=== PATIENT | male | born 1960 | race Caucasian/White ===

== ENCOUNTER 2020-04-06 06:25 | Observation (INO) ==
--- NOTE | 2020-03-25 10:16 | Anesthesiology Consultation ---
Date of Service March 25, 2020 Assessment & Plan (1) Encounter for pre-operative examination: Preop PCP Clearance 03/09/20 = "Patient medically cleared for surgery." Chart Review Chart Review: Acceptable Risk for Surgery and Patient NOT seen in Pre Admission Testing History Surgery Operation Date: 04/06/20 07:00 Proposed Procedures p Right Total Hip Arthroplasty - Romero Brown MD Height/Weight Height: 6 ft Weight: 88.451 kg Allergies Allergy/AdvReac Type Severity Reaction Status Date / Time No Known Allergies Allergy Verified 03/03/20 10:03 Medications Home Medications Medication Instructions Recorded Confirmed Last Taken ascorbic acid (vitamin C) [Vitamin 1 g PO QAM 03/03/20 03/03/20 Unknown C] cyanocobalamin (vitamin B-12) 500 mcg PO QAM 03/03/20 03/03/20 Unknown glucosam zimmer [id number] 2 cap PO QAM 03/03/20 03/03/20 Unknown [glucosamine-chondroitin] multivitamin 1 tab PO QAM 03/03/20 03/03/20 Unknown Past Medical History Medical History 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 Extent and severity varies. 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
--- NOTE | 2020-04-01 16:25 | History & Physical Report ---
Date of Service April 01, 2020 Assessment & Plan (1) Degenerative joint disease of right hip: The patient is scheduled for a right total hip arthroplasty by Dr. Brown on April 06, 2020. Risks and complications of the surgery were explained to the patient and include, but are not limited to, infection, pain, bleeding, scarring, nerve and blood vessel damage, wound problems, weakness, stiffness, incomplete relief of symptoms, hardware failure, loosening wear, fracture, dislocation, leg length discrepancy, blood clots, embolisms, heart attack, stroke, and . Also, the risk of Coronavirus due to being an inpatient. He understands and agrees. Informed consent will be obtained by Dr. Brown on the day of surgery. He did have preoperative clearance by his family physician, Dr. Rosemarie Serrano. He has been cleared. He had an EKG at that time, which showed normal sinus rhythm. He also had a CBC, BMP, which were both normal as well. He will obtain a preoperative PT/PTT type and screen and urinalysis later today at [facility]. He also had a chest x-ray today in our office, which showed no active disease in the chest. He was given a temporary handicap parking placard to obtain for after surgical use. He does have a walker after surgery. He would like to go home upon discharge with in-home nursing and physical therapy if necessary. We will use Coumadin for DVT prophylaxis, and he was instructed on the use of this. He was also instructed on the usage of CHG cloths prior to surgery, and does have those at home. We will also obtain preoperative COVID-19 testing as instructed by [facility] closer to his surgery date. He will then need to be quarantine after the testing until his surgical time. He will be on Percocet for postoperative pain control, and he was cautioned on the risks of the Percocet, which include const ipation. He does have stool softeners and laxatives at home if he needs that as this has happened to him before. All questions were answered today. He knows to call with any further worsening problems, questions, or concerns. Present on Admission?: Yes Admission and Anticipated Discharge Date Admission Date: April 06, 2020 History of Present Illness Chief Complaint: Right hip pain. The patient is a pleasant 59-year-old male who is here today for preoperative history and physical. He is scheduled to have a right total hip arthroplasty with Dr. Brown on April 06, 2020. He states he has been having ongoing right hip pain for the last few years, it has progressively worsened over the last 6 months or so. He does have history of having a right knee arthroscopy and meniscectomy. He thought lot of this pain was coming from his knee, but does have groin pain. He says he has very limited range of motion. His hip does not move very much. He does not notice it when walking on even ground, but notices it when he has to go up an incline or up and down steps. He does have pain in the groin and the right buttock area occasionally. He does radiate down into his thigh. His pain is increased with activity and weightbearing. It does interfere with his activities of daily living, and he has trouble bending over to get his leg into a pant leg as well as tying his shoes. He has pain with passive range of motion and limited range of motion due to the pain and arthritis in his right hip. He does ambulate with an antalgic gait. He does not use a cane or a walker to assist with any ambulation, but he does have both at home. Aggravating activities include going up and down steps. He has not had any previous corticosteroid injections. He has tried [id number] anti-inflammatories as well as Tylenol Arthritis. He has failed conservative treatment due to his increasing pain, stiffness, inability to move, and decreasing activities of daily living. Surgical intervention was recommended. He does agree to proceed with surgery and is scheduled for a right total hip arthroplasty on April 06, [address] Brown. 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 Extent and severity varies. 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 Denies any recent hospitalizations. Denies any headaches, migraine seizures, syncopal episodes, lightheadedness, or dizziness. Denies any bleeding or clotting disorders, history of DVT, or pulmonary embolism. He does have history of having kidney stones approximately 19 years ago. Nothing since. He denies any metal sensitivity or allergy. Denies any latex allergy or history of MRSA. He has not been tested for the [place] virus, but we will obtain this prior to surgery as recommended by [facility]. He denies any chest pain or shortness of breath. Denies any heart palpitations. Denies any abdominal pain. He does get occasional heartburn with certain foods that he eats, but it goes away after a short period of time. Denies any reflux or indigestion. Denies any nausea, vomiting, diarrhea, or constipation. Denies any urinary symptoms such as retention, burning, unable to void, dribbling, or foul-smelling urine. Denies any prostate problems. Denies any heat or cold intolerance. He states that he is hard of hearing, and occasionally wears hearing aids. Denies any vision problems. Denies any current dental problems. Physical Exam Physical Exam: General: He is alert and oriented x3. He is in no acute distress. He is a well-dressed, well-nourished male. Normal mood and affect. Vital Signs: Height is 181 cm, weight is 93 kg, BMI is 28.39. Today, temperature is 36.5, blood pressure is 140/82, heart rate is 68, oxygenation is 100% on room air. Pain score is 2/10. HEENT: Head: Atraumatic, normocephalic. Eyes: Extraocular movements intact. Pupils equal, round, and reactive to light. He does have some ptosis of his left eyelid. His pupils are equal, round, and reactive to light. His sclerae are normal. Nose: Nares are patent bilaterally. Throat: Oropharynx is clear. Mucous membranes moist. Good dentition. Uvula midline. Neck: Supple. No lymphadenopathy. Nontender to palpation. Full range of motion. His chest is nontender to palpation. He does have abnormal musculature on the left side and some excavatum of his chest. His lungs are clear to auscultation bilaterally. Heart is regular rate and rhythm. Normal S1, S2. No murmurs, rubs, or gallops appreciated. Chest is clear to auscultation bilaterally. No adventitious sounds. No accessory muscle use. Abdomen is soft, nontender, nondistended. Normal bowel sounds heard in all 4 quadrants. Exam of his right hip reveals skin is healthy and intact, normal turgor. No distal edema. Distal neurovascular function is normal. Full range of motion of his right knee. He has very limited range of motion of his right hip. He is able to sit into a chair, but is not able to flex his hip past about 90-100 degrees. He has maybe 5 degrees of internal and external rotation with his leg in extension. He is able to lift his leg off the table. His strength is 5/5. Results & Data Results & Data ([facility]) Diagnostic Findings RADIOLOGY IMAGES: AP pelvis and 3 views of his right hip show severe osteoarthritis of his right hip with significant joint space narrowing with [id number]. He has periarticular osteophytes as well as subchondral cysts and sclerosis. Chest x-ray today shows no active disease in the chest. This was done for preoperative testing.
[~2020-04-06 06:25] MED LIST: CEFAZOLIN 2000MG 2,000 MG/15 ML SYR IV SCH; LR 15ML/HR IV SCH; LR 60ML/HR IV SCH; ROPIVACAINE 0.5% HCL/PF 150 MG, BUPIVACAINE 0.5% MPF 30 ML, EPINEPHrine 0.15 MG, Ketoro... INFIL SCH; TRANEXAMIC ACID 1,000 MG **IV Pre-op IV SCH
[2020-04-06] MEDS ORDERED: BUPIVACAINE 0.5 % 5 MG/1 ML PF 10ML VIAL ONE (06:33)
--- NOTE | 2020-04-06 06:57 | History & Physical Bridge Note ---
Date of Service April 06, 2020 History & Physical Bridge Note I have examined the patient, reviewed the History & Physical and in the interval since the performance of the History & Physical I have noted the following changes of clinical significance: consent obtained/site marked covid screen/test negative.no changes noted
[2020-04-06] MEDS ORDERED: ONDANSETRON INJ 2 MG/ML 2 ML VIAL ONE (07:22)
[2020-04-06] MEDS ORDERED: MIDAZOLAM HCL 1 MG/ML 2ML VIAL ONE (07:22)
[2020-04-06] MEDS ORDERED: LIDOCAINE HCL 2% 2 ML VIAL/AMP(20MG/ML) INFIL ONE (07:22)
[2020-04-06] MEDS ORDERED: GLYCOPYRROLATE 0.2 MG/ML VIAL ONE (07:22)
[2020-04-06] MEDS ORDERED: PROPOFOL IV EMULSION 10 MG/ML 20 ML VIAL IV ONE ×4 (07:22→08:56)
[2020-04-06] MEDS ORDERED: ONDANSETRON INJ 2 MG/ML 2 ML VIAL IV PRN ×2 (07:28→11:19)
[2020-04-06] MEDS ORDERED: fentaNYL citrate 100 MCG/2 ML VIAL IV PRN (07:28)
[2020-04-06] MEDS ORDERED: ATROPINE SULFATE 0.1 MG/ML 10ML SYR IV PRN (07:28)
[2020-04-06] MEDS ORDERED: ePHEDrine sulfate 50 MG/ML AMP IV PRN (07:28)
[2020-04-06] MEDS ORDERED: ORTHO JOINT ANESTHETIC ONE (08:00)
--- NOTE | 2020-04-06 09:58 | Post Operative Brief Note ---
Immediate Post Op Note v1 Date of Surgery April 06, 2020 Pre & Post Diagnosis Operation Date: 04/06/20 08:20 Pre-Op Diagnosis: Right Hip Degenerative Joint Disease Post-Op Diagnosis: Right Hip Degenerative Joint Disease I identified the patient and participated in the time-out.: Yes Procedure Operation Date: 04/06/20 08:20 Actual Procedures p Right Total Hip Arthroplasty(Right) - Romero Brown MD Surgeon Romero Brown MD [facility] Estimated Blood Loss 200 Findings Consistent with Post-Op Diagnosis
--- NOTE | 2020-04-06 10:08 | Operative Report ---
Post Operative Report Pre & Post Diagnosis Operation Date: 04/06/20 08:20 Pre-Op Diagnosis: Right Hip Degenerative Joint Disease Post-Op Diagnosis: Right Hip Degenerative Joint Disease I identified the patient and participated in the time-out.: Yes Procedure Operation Date: 04/06/20 08:20 Actual Procedures p Right Total Hip Arthroplasty(Right) - Romero Brown MD Surgeon FREDI Brown MD [facility] Estimated Blood Loss 200 Findings Consistent with Post-Op Diagnosis Specimens see operative report Drains none Complications none Disposition Accompanied Patient To Recovery: Yes Disposition: Recovery Room Indications This 59-year-old white male presented to the office with complaints of intractable right hip pain. He had tried conservative care measures without improvement. He elected to proceed with surgical intervention after being educated about potential risks and outcomes. Preoperative imaging was obtained. Description of Procedure Patient was given a spinal anesthetic and then taken to the operating room where he was given sedation. He was prepped and draped in the usual sterile fashion. Please see Dr. Brown's operative report for specifics of the procedure. I was present for the entire case from initial patient positioning through final wound closure. Assistance was provided in tissue retraction, hemostasis, trial implant placement, final implant placement, and final wound closure. Patient was taken to the recovery room in satisfactory condition. I attest to the content of the Intraoperative Record and any orders documented therein. Any exceptions are noted below.
--- NOTE | 2020-04-06 10:20 | Operative Report (OR) ---
DATE OF OPERATION: 04/06/2020 SURGEON: Roemro Brown MD. DREDGE CAPTAIN: Anderson Shea PA-C. No resident or fellow available. PREOPERATIVE DIAGNOSES: Severe osteoarthritis, secondary to hip dysplasia. POSTOPERATIVE DIAGNOSES: Severe osteoarthritis, secondary to hip dysplasia. OPERATION PERFORMED: Noncemented right total hip replacement. PERIOPERATIVE SITUATION: Medically cleared who has had intractable hip pain. At this point in time, he has significant pain, wants to proceed with surgical treatment. He has failed all conservative management. He realizes that this is the only option for him. He has done some research on his own looking for consultants regarding anterior versus posterior. He ultimately came to me and decided to work with me. He understands the risks and consequences of the posterior approach. PROCEDURE: Again, noncemented right total hip replacement. DESCRIPTION OF PROCEDURE: The patient appropriately identified, site verified, consent verified. Antibiotics confirmed as being given. Right lower extremity was prepped and draped in usual routine fashion. Markers were placed on the right leg, was about 0.5 cm short. He does have some pelvic obliquity as well. 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 The hip prepped and draped in usual routine fashion. Posterior approach to the hip made. Sharp dissection carried through skin and blunt dissection down to fascia. This was then incised under direct vision and the IT band split. Short external rotators were then identified and released. The capsule was then T'd and the hip was dislocated. The femoral head was markedly deformed. It was resected. Acetabular exposure was obtained after anterior capsular release was performed. Osteophytes resected. Loose bodies removed. Serial reaming carried up to a size 56 after it was medialized and then a size 56 cup impacted into appropriate anteversion and inclination with good rim fit. An accessory screw was placed 6.5 x 20 mm with excellent purchase we felt penetrating posteriorly just with the tip. The wound was irrigated, trial liner seated. The hip was then flexed and internally rotated. The proximal femur prepared with call box wirer, canal finder, lateralizing rasp, and serial broaching up to a size 6. Trial reduction was carried out and a +12 head gave relatively equal leg lengths and superb stability. The hip was then dislocated and irrigated with Betadine, Pulsavac, hole eliminator seated, permanent liner seated, permanent head and stem seated. The hip reduced. It was stable in all planes. Leg lengths were good. Wound was irrigated and then closed with #2 Vicryl for the capsule and piriformis and short external rotators, #2 Vicryl for the IT band, 2-0 Vicryl for subcutaneous layer and stainless steel clips for skin. Appropriate dressing applied. The patient transferred to recovery room in satisfactory condition and he tolerated the procedure well. Pathology pending on bone resection. DVT prophylaxis with Coumadin. Heterotopic ossification prophylaxis with Celebrex. I attest to the content of the Intraoperative Record and any orders documented therein. Any exception s are noted below.
--- NOTE | 2020-04-06 10:22 | XRay Report ---
PELVIS 1-2V routine History: Right total hip arthroplasty. Degenerative arthritis. Postop. FINDINGS: The patient is status post a right total hip arthroplasty. The hardware is intact. No fracture or dislocation. Skin jeffrey are in place. IMPRESSION: Right total hip arthroplasty. No evidence for hardware complication ACT 112: Negative or not required by law. Electronically signed by: Kei Castillo M.D. 04/06/2020 10:21 AM ROSALEE
--- NOTE | 2020-04-06 10:24 | Operative Report (OR) ---
DATE OF OPERATION: 04/06/2020 ADDENDUM SUMMARY OF IMPLANTS: Size 56 acetabular shell sector cup hole eliminator, cancellous screw 6.5 x 20, acetabular liner 36 x 56 neutral liner, size 6 standard, Tri-Lock stem and a 36+12 ceramic head. EBL was 200 mL. Bone pathology pending. DVT prophylaxis per protocol. I attest to the content of the Intraoperative Record and any orders documented therein. Any exception s are noted below.
[2020-04-06] MEDS ORDERED: NALOXONE HCL 0.4 MG/1 ML VIAL/CARP IV PRN (11:19)
[2020-04-06] MEDS ORDERED: bisacodyL 10 MG SUPP PR PRN (11:19)
[2020-04-06] MEDS ORDERED: MAGNESIUM HYDROXIDE SUSP 30 ML UDC PO PRN (11:19)
[2020-04-06] MEDS ORDERED: METOCLOPRAMIDE HCL INJ 5 MG/ML 2 ML VIAL IV PRN (11:19)
[2020-04-06] MEDS ORDERED: OXYCODONE HCL IR 5 MG TAB (IMMEDIATE RELEASE) PO PRN (11:19)
[2020-04-06] MEDS ORDERED: ALUMINUM/MAGNESIUM SUSP 30 ML UDC PO PRN (11:19)
[2020-04-06] MEDS ORDERED: TAMSULOSIN HCL 0.4 MG CAP PO PRN (11:19)
[2020-04-06] MEDS ORDERED: HYDROmorphone INJ 0.5 MG/0.5 ML SYR IV PRN (11:19)
[2020-04-06] MEDS ORDERED: SODIUM CHLORIDE 0.9% 1000ML 1,000 ML IV SCH (11:19)
[2020-04-06] MEDS ORDERED: DiphenhydrAMINE HCL 50 MG/ML VIAL IV PRN (11:19)
[2020-04-06] MEDS: KETOROLAC 30 MG/ML VIAL IV SCH ×3 (12:33→23:17)
--- NOTE | 2020-04-06 13:10 | Progress Notes ---
DATE: 04/06/2020 Postop check status post right total hip replacement. The patient is sitting up in bed eating lunch. He denies any chest pain, shortness of breath, fever, chills, nausea, vomiting or headache. Wound dressing clean, dry and intact. Neurovascular check limited by spinal still having an effect, has trace movement in both lower extremities. Postop x-rays look excellent. ASSESSMENT: Overall, doing well. Continue with care pathway. He is eating well. Hep-Lock IV. Mobilize when his legs wake up. Discharge plans for tomorrow.
--- NOTE | 2020-04-06 13:16 | Discharge Summary (DS) ---
CHIEF COMPLAINT: Right hip pain. HISTORY OF PRESENT ILLNESS: The patient is admitted for elective right total hip replacement for severe osteoarthritic disease secondary to hip dysplasia. At this point in time, hospital course has been uneventful. PAST MEDICAL HISTORY: Remarkable for Amy syndrome, history of nephritis. PAST SURGICAL HISTORY: Colonoscopy, tooth extraction. FAMILY HISTORY: Sister, diabetes. Father, colon cancer. SOCIAL HISTORY: Speaks Chinese. 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 Social alcohol. No tobacco or substance abuse. REVIEW OF SYSTEMS: Reveals no chest pain, shortness of breath, fever, chills, nausea, vomiting or headache. Postop x-rays look excellent. ASSESSMENT: Status post right total hip replacement, discharge to home with home health services. Follow up in 2 weeks for staple removal. Coumadin for DVT prophylaxis, Celebrex for HO prophylaxis.
[2020-04-06] MEDS: ACETAMINOPHEN 500 MG TAB PO SCH ×2 (13:33→21:02)
[2020-04-06] MEDS ORDERED: ORTHO WARFARIN NOMOGRAM SCH (14:00)
--- NOTE | 2020-04-06 15:30 | Anesthesiology Progress Note ---
Date of Service April 06, 2020 Anesthesia Post Procedure Vital Signs Vital Signs: Temp Pulse Pulse Resp BP Pulse Ox 04/06/20 15:00 36.7 C 77 16 105/64 94 04/06/20 14:05 36.7 C 77 18 103/64 95 04/06/20 13:05 37.0 C 76 18 114/73 97 04/06/20 12:05 36.5 C 78 16 120/78 97 04/06/20 11:39 36.7 C 81 17 116/73 98 04/06/20 11:05 36.7 C 73 15 147/70 H 98 04/06/20 10:45 62 18 130/78 99 04/06/20 10:35 36.4 C L 64 15 125/69 97 04/06/20 10:25 63 16 114/88 96 04/06/20 10:15 62 15 123/77 100 04/06/20 10:05 36.5 C 73 18 110/73 100 04/06/20 07:22 37.1 C 79 20 149/97 H 98 Pain Intensity Right Hip: Pain Intensity: 0 Transfer of Care Handoff Completed per policy Notes Mental Status: alert / awake / arousable and participated in evaluation Patient Amnestic to Procedure: Yes Nausea / Vomiting: adequately controlled Pain: adequately controlled Airway Patency, RR, SpO2: stable & adequate BP & HR: stable & adequate Hydration State: stable & adequate Neuraxial Anesthesia: was administered and sensory block is resolving Anesthetic Complications: no major complications apparent and Pt Satisfied with anesthetic care
[2020-04-06] MEDS ORDERED: WARFARIN SOD 5 MG TAB PO ONE (16:00)
[2020-04-06] MEDS ORDERED: TRANEXAMIC ACID / 0.7% NACL 1,000 MG/100 ML BAG IV SCH (16:13)
[2020-04-06] MEDS: CEFAZOLIN 2000MG 2,000 MG/15 ML SYR IV SCH (18:13)
[2020-04-06] MEDS ORDERED: SENNA 8.6 MG TAB PO SCH (21:00)
[2020-04-06] MEDS: DOCUSATE SODIUM 100 MG CAP PO SCH (21:02)
[2020-04-06] MEDS: PANTOprazole 40 MG TAB PO SCH (21:18)
[2020-04-07] MEDS: CEFAZOLIN 2000MG 2,000 MG/15 ML SYR IV SCH (03:25)
[2020-04-07] MEDS: ACETAMINOPHEN 500 MG TAB PO SCH (05:23)
[2020-04-07] MEDS: KETOROLAC 30 MG/ML VIAL IV SCH (05:23)
[2020-04-07 07:24] LABS: Basophils # (auto) 0.01 K/uL (0-0.2); Basophils % (auto) 0.1 %; Eosinophils # (auto) 0.04 K/uL (0-0.5); Eosinophils % (auto) 0.4 %; Hematocrit (blood only) 33.1 % (42-52); Hemoglobin 10.9 g/dL (14.0-18.0); Immature Granulocytes # (auto) 0.02 K/uL (0.00-0.02); Immature Granulocytes % (auto) 0.2 %; Lymphocytes % (auto) 16.7 %; Mean Corpuscular Hemoglobin 30.2 pg (25-34); Mean Corpuscular Hgb Conc 32.9 g/dL (32-36); Mean Corpuscular Volume 91.7 fL (80-100); Mean Platelet Volume 9.3 fL (7.4-10.4); Monocytes # (auto) 0.98 K/uL (0.11-0.59); Monocytes % (auto) 10.9 %; Neutrophils # (auto) 6.42 K/uL (1.4-6.5); Neutrophils % (auto) 71.7 %; Platelet Count 197 K/uL (130-400); RDW Coefficient of Variation 14.1 % (11.5-14.5); RDW Standard Deviation 47.4 fL (36.4-46.3); Red Blood Count 3.61 M/uL (4.7-6.1); White Blood Count 8.97 K/uL (4.8-10.8)
[2020-04-07 07:34] LABS: INR 1.1 (0.9-1.1); Prothrombin Time 11.1 Seconds (9.0-12.0)
--- NOTE | 2020-04-07 07:35 | Anesthesiology Progress Note ---
Date of Service April 07, 2020 Anesthesia Post Procedure Vital Signs Vital Signs: Temp Pulse Pulse Resp BP Pulse Ox 04/07/20 07:31 36.7 C 73 18 122/78 98 04/07/20 03:18 36.7 C 82 16 107/69 97 04/06/20 22:25 36.7 C 66 16 99/64 L 95 04/06/20 19:21 36.8 C 77 16 91/55 L 95 04/06/20 15:00 36.7 C 77 16 105/64 94 04/06/20 14:05 36.7 C 77 18 103/64 95 04/06/20 13:05 37.0 C 76 18 114/73 97 04/06/20 12:05 36.5 C 78 16 120/78 97 04/06/20 11:39 36.7 C 81 17 116/73 98 04/06/20 11:05 36.7 C 73 15 147/70 H 98 04/06/20 10:45 62 18 130/78 99 04/06/20 10:35 36.4 C L 64 15 125/69 97 04/06/20 10:25 63 16 114/88 96 04/06/20 10:15 62 15 123/77 100 04/06/20 10:05 36.5 C 73 18 110/73 100 Pain Intensity Right Hip: Pain Intensity: 0 Transfer of Care Handoff Completed per policy Notes Mental Status: alert / awake / arousable and participated in evaluation Nausea / Vomiting: adequately controlled Pain: adequately controlled Airway Patency, RR, SpO2: stable & adequate BP & HR: stable & adequate Hydration State: stable & adequate Neuraxial Anesthesia: was administered and sensory block resolved Anesthetic Complications: no major complications apparent and Pt Satisfied with anesthetic care
[2020-04-07 07:56] LABS: BUN Creatinine Ratio 13.6 (10-20); Calcium 8.5 mg/dl (8.5-10.1); Creatinine Clr Calc Pharmacy 77.7 ml/min; Est GFR (African American) 83.2; Est GFR (Non-African American) 71.8; Potassium 3.9 mmol/L (3.5-5.1)
[2020-04-07] MEDS ORDERED: dexAMETHasone 10 MG in SYRINGE 0 ML IV SCH (08:00)
--- NOTE | 2020-04-07 08:30 | Orthopedic Progress Note ---
Date of Service April 07, 2020 Assessment & Plan (1) Status post total hip replacement, right: Dressing was changed today by me. PT/OT this morning, prior to discharge. Anticipate discharge to home later this morning with home health nursing to start over the weekend. Patient was instructed on how to shower while covering his dressing. Prescription was provided for Celebrex 200 mg daily x2 weeks and Protonix 40 mg daily x3 weeks. Prescriptions also provided for Percocet for pain control and Coumadin 2 mg. He will take Coumadin 4 mg daily through the weekend and have his INR rechecked on Saturday. Follow-up in the office in 2 weeks for staple removal. Call with any other concerns. Admission and Anticipated Discharge Date Admission Date: April 06, 2020 Anticipated date of discharge: 04/07/20 Subjective Patient is seen in his room this morning. He has no complaints at this time. States he did fairly well overnight. Pain is controlled. He feels ready for discharge to home. He denies any nausea, vomiting, abdominal pain, or inability to void. No hip pain, numbness, or tingling. Review of Systems Review of Systems: Unchanged from preop Physical Exam Physical Exam: Afebrile. General: Well-developed, well-nourished, middle-aged white male, in no acute distress. Laying on the bed. Alert and oriented. Musculoskeletal: Right hip evaluation reveals an intact postoperative dressing. Upon removal, jeffrey are intact. Expected postoperative ecchymosis and edema. No active bleeding. Scant dried blood on his postsurgical dressing. Supple g entle active and passive range of motion of the hip. Intact motor function of the ankle and knee. Neurologic: Gross sensation is intact across the right leg by soft touch. Peripheral pulses are 2+. Results & Data ([facility]) Vital Signs (Past 12 Hours) Vital Signs Temp Pulse Resp BP Pulse Ox 04/07/20 07:31 36.7 C 73 18 122/78 98 04/07/20 03:18 36.7 C 82 16 107/69 97 04/06/20 22:25 36.7 C 66 16 99/64 L 95 Laboratory Results H&H obtained today are 10.9 and 33.1. WBCs are 8.97. INR is 1.1. PRP obtained today is entirely unremarkable.
[2020-04-07] MEDS: PANTOprazole 40 MG TAB PO SCH (08:37)
[2020-04-07] MEDS: DOCUSATE SODIUM 100 MG CAP PO SCH (08:37)
--- NOTE | 2020-04-07 08:54 | Progress Notes ---
DATE: 04/07/2020 SUBJECTIVE: Postop day #1 status post right total hip replacement. The patient is sitting up in bed, comfortable. Denies any chest pain, shortness of breath, fever, chills, nausea, vomiting or headache. OBJECTIVE: Vital signs are stable. He is afebrile. He is well oxygenated. He has been up ambulatory around the room, has been able to urinate and void. Denies any severe pain. He has good muscle control of his quad and his foot and ankle. Examination reveals good quad tone. Good dorsi and palmar flexion, plantar flexion of the ankle inversion, eversion. Wound clean and dry. Hip is located. ASSESSMENT: Doing well. PT, OT today. Coumadin per nomogram. Discharge this morning. Follow up in 2 weeks for staple removal. Keep INR 1.8-2.2. Discharged on Protonix to protect the stomach. Discharged on 2 weeks of Celebrex 200 mg daily.
[2020-04-07] MEDS ORDERED: MULTIVITAMIN TAB PO SCH (09:00)
[2020-04-07] MEDS ORDERED: CYANOCOBALAMIN 500 MCG TABLET (VITAMIN B-12) PO SCH (09:00)
[2020-04-07] MEDS ORDERED: ASCORBIC ACID 500 MG TAB PO SCH ×2 (09:00→09:15)
[2020-04-07] MEDS ORDERED: WARFARIN SOD 5 MG TAB PO ONE (11:00)
[2020-04-07] MEDS ORDERED: CeleBREX 200 MG CAP PO SCH (12:00)
== END 2020-04-07 12:40 | disposition home health service (06) | DRG 470 ==
LOC: ASU 06:25 → INTOOBSV 10:14 → 3N 10:14